=== PATIENT | female | born 1975 | race Caucasian/White ===

== ENCOUNTER 2021-04-17 05:41 | Emergency (ER) | payer OTHER ==
[~2021-04-17] VITALS: Ht 157.5 cm; Wt 81.6 kg
[~2021-04-17 05:41] MED LIST: LO/OVRAL-281 TAB PO
[2021-04-17] MEDS ORDERED: GLIMEPIRIDE1 MG (05:50)
== END 2021-04-17 15:07 | disposition home or self-care (01) ==
LOC: ER 05:41
DX: R10.11 Right upper quadrant pain (principal)

== ENCOUNTER 2021-05-15 07:39 | Outpatient (CLI) | payer OTHER ==
[~2021-05-15 07:39] MED LIST changes: +GLIMEPIRIDE1 MG
== END 2021-05-15 07:42 | disposition home or self-care (01) ==
LOC: NUCLEAR 07:39
PROVIDERS: ATTEND Internal Medicine
DX: K81.0 Acute cholecystitis (principal)
CPT/HCPCS: 78226; A9537